=== PATIENT | female | born 1975 | race Caucasian/White ===

== ENCOUNTER 2022-12-17 08:34 | Day surgery (SDC) | payer OTHER ==
[2022-12-17] MEDS ORDERED: Ringers Lactate 1,000 ML IV ONE (09:10)
[2022-12-17 09:14] LABS: Potassium 3.6 mEq/L (3.5-5.1)
[2022-12-17] MEDS ORDERED: propofoL 200 MG/20 ML VIAL IV ONE ×2 (10:03)
[2022-12-17] MEDS ORDERED: LIDOCAINE 1% MPF 5 ML VIAL ONE (10:05)
[2022-12-17 11:47] VITALS: TEMP 96.7
[2022-12-17 11:50] VITALS: BP 126/69; O2SAT 99
--- NOTE | 2022-12-19 11:20 | EKG ---
Test Date: 2022-12-17 Test Time: 08:45:28 [employer] Tender: STEPHEN MEASUREMENT RESULTS: Intervals: Rate: 76 [place]: 148 QRSD: 90 QT: 398 QTc: 447 [place]: P: 72 [place]: 148 QRS: 61 T: 61 INTERPRETIVE STATEMENTS: Normal sinus rhythm Normal ECG No previous ECG available for comparison Electronically Signed On 12-19-22 11:17:54 CDT by Mo Geiger
== END 2022-12-17 10:55 | disposition home or self-care (01) ==
LOC: OR 08:34
PROVIDERS: ATTEND Surgery
PROC: 0DJD8ZZ Inspection of Lower Intestinal Tract, Via Natural or Artificial Opening Endoscopic (ICD-10-PCS; principal; 2022-12-17 11:30)
DX: Z12.11 Encounter for screening for malignant neoplasm of colon (principal); Z91.199 Patient's noncompliance with other medical treatment and regimen due to unspecified reason
CPT/HCPCS: 93005; 80048; 36415; 84703; 45378; J2704; J2001; J7120